=== PATIENT | male | born 1950 | race Caucasian/White ===

== ENCOUNTER 2016-05-19 19:49 | Inpatient (IN) | payer OTHER ==
[~2016-05-19] VITALS: Ht 182.9 cm; Wt 104.3 kg
[~2016-05-19 19:49] MED LIST: AMLO10TA5 PO; ASPI-628 PO; BENA20TA72 PO; CLON1PAT15 TD; CLOP75TA3 PO; FURO-128 PO; Hydrocodone/Acetaminophen PO; INSU100I25 SQ; METO-274 PO
[2016-05-19 20:05] VITALS: BP 184/82; PULSE 82; RESP 21
--- NOTE | 2016-05-19 20:17 | ED.REPORT ---
HPI-Chest Pain 40 and Over Date of Service May 19, 2016 ED Provider: Dr. Ottoniel Barillas M.D. A 66 year old male with a medical history including diabetes mellitus, hypertension, hyperlipidemia, and CAD s/p 4 vessel CABG (1996) and multiple subsequent stent placements presents to the ED with chest pain onset 1900 today , while sitting down. The pain is described as "pressure" in the middle of his chest, with radiation outward. The patient denies nausea, shortness of breath, diaphoresis, vomiting, diarrhea, or other symptoms. He took Nitro x2 at onset, with no relief. EMS found the patient with a BP of 190/93 and otherwise normal vital signs. He was given another Nitro x2 en route, with mild relief. The patient had a brief episode of similar pain last night and again at 1700 today. He has had similar symptoms in the past, most recently nine months ago. Three weeks ago the patient had an infection in his toe followed by tendonitis of the Achilles tendon. Nursing Notes Stated Complaint: CHEST PAIN Chief Complaint: Chest Pain Nursing Notes Reviewed: Yes Allergies: Coded Allergies: Dkwrthe-Aaq-Hwt Reductase Inhibitor (Verified Allergy, Unknown, 05/19/16) atorvastatin (Verified Allergy, Unknown, 05/19/16) pravastatin (Verified Allergy, Unknown, 05/19/16) simvastatin (Verified Allergy, Unknown, 05/19/16) Uncoded Allergies: ANTILIPEMIC (Allergy, Unknown, 12/20/08) ANTILIPEMIC AGENTS (Allergy, Unknown, 08/29/03) Scheduled Amlodipine (Norvasc) 10 Mg Tablet 10 MG PO DAILY Aspirin (Aspir 81) 81 Mg Tablet.dr 81 MG PO HS Benazepril (Lotensin) 20 Mg Tablet 20 MG PO DAILY Clonidine HCl (Clonidine 0.2 mg/24 hr Tdrm Patch) 1 Each Patch.tdwk 1 PATCH TD QW Insulin Detemir (Levemir Flextouch) 100 Unit/1 Ml Insuln.pen 35 UNIT SQ BID Metformin (Metformin) 500 Mg Tablet 500 MG PO BID Metoprolol Succinate ER (Metoprolol Succinate ER) 100 Mg Tab.er.24h 100 MG PO BID Scheduled PRN ([Hydrocodone/Acetaminophen]) 1 TAB TABLET 1-2 TAB PO Q4H PRN PRN For Pain General Time Seen by MD: 20:16 Chief Complaint Chest pain Hx Obtained From: Patient Arrived By: Walk-in Sudden in Onset?: Yes Onset Occurred: 1 - 4 hours ago Symptom Duration: Since onset Location: : Epigastric Quality: Painful, Pressure Severity: Current: Moderate Severity: Maximum: Moderate Associated with: Denies: Diaphoresis, Nausea, Shortness of Breath Relieved by: Nitroglycerin at home x 2, Nitroglycerin - EMS x 2 Context Related History: Reports: Acute coronary syndrome, Hypertension Recent Healthcare: No recent doctor visit Similar Sx Previous: Yes Past Medical History Past Medical History Diabetes Mellitus RBBB CAD s/p 4 vessel CABG 1996, s/p multiple subsequent stents including LAURENCE x 2 to mid and distal RCA in 09/26/2010 Hypertension Hyperlipidemia R knee osteoarthritis Past Surgical History 4 vessel CABG 1996, s/p multiple subsequent stents including LAURENCE x 2 to mid and distal RCA in 09/26/2010 R knee meniscectomy in 1967 Smoking History Never Smoker Social History Alcohol Use: Denies alcohol use Drug Use: Denies drug use Review of Systems Constitutional: Denies: Fever Respiratory: Denies: Non-productive cough, Shortness of breath Cardiovascular: Reports: Chest pain GI: Denies: Diarrhea, Nausea, Vomiting Skin: Denies Diaphoresis Complete sys rev & neg: except as marked. Physical Exam Initial Vital Signs Vital Signs (First) Date Time Temp Pulse Resp B/P Pulse Ox O2 Delivery O2 Flow Rate FiO2 05/19/16 20:05 36.6 82 21 184/82 Room Air 05/19/16 20:31 98 3 Initial VS: Reviewed Head / Eyes: Atraumatic, Normocephalic ENT: Conjunctiva normal, No scleral icterus Neck: Supple, Full range of motion Skin: Warm, Dry, No cyanosis Neurologic: Alert, Oriented, Nonfocal Psychiatric: Mood/affect normal, Behavior normal, Normal thought content General/Constitutional: Awake, Alert Respiratory / Chest: Atraumatic, Breath sounds NL, Breath sounds = bilat, No respiratory distress Cardiovascular: Heart rate NL, Regular rhythm, Heart sounds NL Right leg edema Abdomen: Soft, Non-tender Interpretation & Diagnostics Lab Results Interpretation Result Diagram: 05/19/16201505/19/16 2016 Test 05/19/16 20:16 White Blood Count 14.9th/mm3 (3.8-10.1) Red Blood Count 4.37mil/mm3 (4.40-5.80) Hemoglobin 14.2g/dL (13.8-17.2) Hematocrit 40.4% (41.0-50.0) Mean Corpuscular Volume 92.4fL (81-100) Mean Corpuscular Hemoglobin 32.5pg (27.0-35.0) Mean Corpuscular Hemoglobin Concent 35.1% (32.0-37.0) Red Cell Distribution Width 12.7% (12.3-15.4) Platelet Count 212bil/L (150-400) Neutrophils (%) (Auto) 89.1% (40-74) Lymphocytes (%) (Auto) 8.9% (14-46) Monocytes (%) (Auto) 1.9% (4-12) Eosinophils (%) (Auto) 0% (0-5) Basophils (%) (Auto) 0% (0-3) Sodium Level 133mEq/L (134-144) Potassium Level 4.7mEq/L (3.5-5.2) Chloride Level 93mEq/L (97-108) Carbon Dioxide Level 19mmol/L (18-29) Blood Urea Nitrogen 34mg/dL (8-27) Creatinine 1.34mg/dL (0.76-1.27) Estimat Glomerular Filtration Rate 57mL/min (>59) Glucose Level 414mg/dL (60-99) Calcium Level 10.1mg/dL (8.5-10.1) Magnesium Level 1.8mg/dL (1.6-2.6) Total Bilirubin 0.6mg/dL (0.0-1.2) Aspartate Amino Transf (AST/SGOT) 28U/L (0-50) Alanine Aminotransferase (ALT/SGPT) 16U/L (0-44) Alkaline Phosphatase 75U/L (25-160) Total Creatine Kinase 305U/L (21-232) Creatine Kinase MB 5.5ng/mL (0.0-10.4) Creatine Kinase MB % % (0.0-5.0) Troponin T < 0.010ug/L (0.0-0.011) Total Protein 8.2g/dL (6.4-8.4) Albumin 4.3g/dL (3.4-5.0) Thyroid Stimulating Hormone (TSH) 1.020uIU/mL (0.450-4.500) ECG Interpretation ECG Interpretation: Sinus rhythm rate 81 Borderline prolonged DC interval Right bundle branch block Nonspecific ST wave changes Time: 20:05 Interpreted by: ED physician X-Ray Chest Interpretation Chest Xray Interpretation: IMPRESSION: No acute process. Dictated by: Nellie Hood M.D. on 05/19/2016 at 20:25 View: Portable, 1 view Interpretation / Wet Read by: Interpret - Radiologist Re-Eval/Medical Decision Source of Hx: Old records Time of Eval: 20:55 Patient Status: Condition improved Re-Evaluation/Progress Note: Patient's pain has reduced to less than 1/10. Discussed with patient x-ray and lab results, diagnosis, and plan admit. Patient agrees with plan for care and all questions were addressed. Consultation #1: Referral / Consult Name: Carlton Yoder MD Consulted With: Hospitalist Call Returned at: 21:10 Capsule Inspector: Agrees with eval, Agrees with plan, Accepts admit Consultation #2: Referral / Consult Name: Kisha Ramos MD Consulted With: Balance Truing Inspector: Will see patient, Agrees with plan Counseled Regarding: Diagnosis, Lab results, Need for admission Discharge & Departure Primary Impression: Unstable angina Disposition: ADMITTED TO HOSPITAL Discharge Condition All VS Reviewed: Yes Condition: Improved Referrals: Rosalind Yeager MD (PCP) Scribe Attestation Portions of this note were transcribed by Cass Pak. I, Dr. Barillas, personally performed the history, physical exam, and medical decision-making; I reviewed and confirmed the accuracy of the information in the transcribed note. Signed by: Pernell Thomas, 05/19/2016, 22:40 copies to: Rosalind Yeager MD, Kirk H MD May 19, 2016 20:17 CASS PAK May 19, 2016 20:26
[2016-05-19 20:20] LABS: BASOPHILS % (AUTO) 0 % (0-3); EOSINOPHILS % (AUTO) 0 % (0-5); MONOCYTES % (AUTO) 1.9 % (4-12); Mean Corpuscular Hemoglobin 32.5 pg (27.0-35.0); Mean Corpuscular Volume 92.4 fL (81-100); NEUTROPHILS % (AUTO) 89.1 % (40-74); Platelet Count 212 bil/L (150-400)
[2016-05-19] MEDS ORDERED: Heparin 5,000 Unit/mL Inj IVPUSH ONE (20:25)
--- NOTE | 2016-05-19 20:27 | DRSVH ---
PROCEDURE: X-RAY CHEST ONE VIEW, PORTABLE ([id number]) INDICATIONS: CHEST PAIN TECHNIQUE: One view of the chest was acquired. COMPARISON: [facility], , CHEST 1VW (PORTABLE), 02/08/2014, 22:45. FINDINGS: Surgical changes and devices: Median sternotomy.. Lungs and pleura: No pleural effusions or pneumothorax. Lungs are clear. Mediastinum: Mediastinal contours appear normal. Heart size is normal. Bones and chest wall: No suspicious bony lesions. Overlying soft tissues appear unremarkable. IMPRESSION: No acute process. Dictated by: Nellie Hood M.D. on 05/19/2016 at 20:25 Approved by: Nellie Hood M.D. on 05/19/2016 at 20:26
[2016-05-19] MEDS: MeTOProlol 1 mg/mL 5 mL Inj IVPUSH PRN (20:30)
[2016-05-19 20:31] VITALS: BP 161/76; PULSE 80; RESP 19; O2SAT 98
[2016-05-19] MEDS: Heparin 25K Unit/500mL 0.45 NS 25,000 UNIT in IV Premix 1 EACH IV SCH (20:34)
[2016-05-19 20:50] LABS: TROPONIN T < 0.010 ug/L (0.0-0.011)
[2016-05-19] MEDS ORDERED: Nitroglycerin 2% 1 Gm Ointment TOPICAL SCH (20:55)
[2016-05-19 20:56] LABS: Magnesium 1.8 mg/dL (1.6-2.6)
[2016-05-19 21:00] VITALS: BP 156/67; PULSE 73; RESP 19; O2SAT 97
[2016-05-19] MEDS ORDERED: Alum-Mag Hydrox-Simeth 30 mL Suspension PO PRN (21:10)
[2016-05-19] MEDS ORDERED: Ondansetron 2 mg/mL 2 mL Inj IVPUSH PRN (21:10)
[2016-05-19] MEDS ORDERED: Senna-Docusate 8.6-50 mg Tablet PO PRN (21:10)
[2016-05-19] MEDS ORDERED: Polyethylene Glycol (PEG) 17 Gm Powder PO PRN (21:10)
[2016-05-19] MEDS ORDERED: Atropine 1 mg/10 mL (Code) Syringe IVPUSH PRN (21:10)
[2016-05-19 21:19] VITALS: BP 142/64; PULSE 74; RESP 19; O2SAT 98
[2016-05-19] MEDS ORDERED: Glucose 40% Oral Gel 15 Gm Tube PO PRN (21:50)
[2016-05-19 21:59] LABS: Creatine Kinase 305 U/L (21-232)
[2016-05-19 22:23] VITALS: BP 160/75; PULSE 67; RESP 22; O2SAT 96
[2016-05-19] MEDS: 0.9% Sodium Chloride 1,000 ML IV SCH (22:50)
[2016-05-19] MEDS ORDERED: METF500T4 PO (22:50)
[2016-05-19] MEDS: Insulin LISPRO 300 Unit/3 mL Inj SUBQ SCH (22:56)
--- NOTE | 2016-05-19 23:07 | PCM.HPMED ---
Subjective Date of Service May 19, 2016 Primary Provider: Admitting Physician: Primary Care Physician: Rosalind Yeager MD Attending Physician: Admit Status: From the Emergency Department, Full Admit, [facility] Telemetry Chief Complaint: Chest pain History of Present Illness: Tez Rivera is a 66 year old male with Coronary artery disease, Diabetic with Hypertension and Hyperlipidemia who presents to [facility] emergency department with chest pain. Patient reported the onset was 1900 today, while sitting down. The pain is described as "pressure" in the middle of his chest, without any radiation. The patient denies nausea, shortness of breath, diaphoresis, vomiting, diarrhea. Patient mention this is his typical angina pain but is more persistent today. The patient has had similar symptoms in the past, most recently nine months ago. He is under alot of Stress st home and did not elaborate He took Nitro x2 at onset, with no relief. He then called 911. EMS found the patient with persistent pain. He was given another Nitro x2 en route, with mild relief. . Three weeks ago the patient had an infection in his toe followed by tendonitis of the Achilles tendon. He is currently stating a 5 day course of Prednisone. Case discussed with Dr Barillas, Review of Systems: Pertinent positives as noted in HPI. All other systems were reviewed and are negative Allergies Coded Allergies: Dvpcjgn-Aio-Dll Reductase Inhibitor (Verified Allergy, Unknown, 05/19/16) atorvastatin (Verified Allergy, Unknown, 05/19/16) pravastatin (Verified Allergy, Unknown, 05/19/16) simvastatin (Verified Allergy, Unknown, 05/19/16) Uncoded Allergies: ANTILIPEMIC (Allergy, Unknown, 12/20/08) ANTILIPEMIC AGENTS (Allergy, Unknown, 08/29/03) Home Medications From [facility], not yet confirmed Tez Rivera. [id number] 1950 05/18/2016 10:40 AM 02/28 Aldactazide 25 mg-25 mg tablet take 1 tablet by oral route every day AmLODIPine Besylate Oral Tablet 10 MG TAKE ONE TABLET BY MOUTH ONE TIME DAILY aspirin 81 mg tablet,delayed release take 1 tablet by oral route every day Benazepril HCl Oral Tablet 20 MG TAKE ONE TABLET BY MOUTH ONE TIME DAILY clonidine 0.3 mg/24 hr weekly transdermal patch apply 1 patch by transdermal route every week Co Q-10 100 mg capsule take 1 by Oral route once Fish Oil 1,000 mg capsule take 1 tablet every day Imdur 60 mg tablet,extended release take 1 1/2 tablet by oral route every day in the morning Lantus SoloStar Subcutaneous Solution Pen-injector 100 UNIT/ML INJECT 30 UNITS SUB-Q TWICE DAILY MetFORMIN HCl Oral Tablet 500 MG TAKE 1 TABLET BY MOUTH TWICE A DAY Metoprolol Succinate ER Oral Tablet Extended Release 24 Hour 200 MG TAKE ONE TABLET BY MOUTH TWICE DAILY nitroglycerin 0.4 mg sublingual tablet 1 tablet S/L prn Rpt q 5 min , if pain persists after 2 tabs seek medical attention pravastatin 20 mg tablet take 1 tablet by oral route every day prednisone 50 mg tablet take 1 tablet by oral route every day PMH Hypertension Hyperlipidemia Diabetes Type 2 Vertigo Coronary artery disease status post CABG (X4 in '97), coronary stent, hypertension, diabetes and hyperlipidemia. 3 saphenous vein grafts are occluded , the MONTENEGRO to his LAD remained patent. He previously reported angina with minimal activity, post meals, cold temperatures and exertion. He was last seen 12/08/[address] Leon. R knee osteoarthritis . Surgical History R knee meniscectomy in 1968 Cardiac Bypass surgery Family History Father had CABG Mother had a defibrillator placed Social History Hx Alcohol Use: No Hx Substance Use: No Hx Tobacco Use: No Smoking Status: Never Smoker Living Arrangement: with Family Exam Vital Signs Vital Sign - Last Date Time Temp Pulse Resp B/P Pulse Ox O2 Delivery O2 Flow Rate FiO2 05/19/16 21:19 74 19 142/64 98 Nasal Cannula 3 05/19/16 20:05 36.6 Exam General: Alert, Oriented X3, Cooperative, No acute Distress Eyes: PERRLA, Scleral Anicteric Mouth: Mouth Normal, Mucous Membranes Moist/Howell Neck: Supple, no Thyromegaly, trachea central. Chest & Lungs: Clear to auscultation & percussion, No adventitious breath sounds, no crackles, no wheeze Cardiovascular: Normal S1, Normal S2, No Murmurs/Rubs/Gallops, Regular Rate/ Rhythm, (No JVD, no peripheral edema) Pulses: Radial (present and equal), Dorsalis Pedi (present and equal) Abdomen: Soft, Non-tender, Non-distended, Normoactive bowel tones. Musculoskeletal: Unremarkable. Normal range of motion, no swollen or erythematous joints Extremities: Chronic right leg edema, no cyanosis, no clubbing. Skin: No rashes. Warm and dry, no erythematous areas Neurological: Grossly neurologically intact, Normal Speech, Sensation Intact Lymphatic: Lymph nodes Cervical and Axillary not palpable Lab and Diagnostics Labs Laboratory Tests Test 05/19/16 20:16 White Blood Count 14.9th/mm3 (3.8-10.1) Red Blood Count 4.37mil/mm3 (4.40-5.80) Hemoglobin 14.2g/dL (13.8-17.2) Hematocrit 40.4% (41.0-50.0) Mean Corpuscular Volume 92.4fL (81-100) Mean Corpuscular Hemoglobin 32.5pg (27.0-35.0) Mean Corpuscular Hemoglobin Concent 35.1% (32.0-37.0) Red Cell Distribution Width 12.7% (12.3-15.4) Platelet Count 212bil/L (150-400) Neutrophils (%) (Auto) 89.1% (40-74) Lymphocytes (%) (Auto) 8.9% (14-46) Monocytes (%) (Auto) 1.9% (4-12) Eosinophils (%) (Auto) 0% (0-5) Basophils (%) (Auto) 0% (0-3) Sodium Level 133mEq/L (134-144) Potassium Level 4.7mEq/L (3.5-5.2) Chloride Level 93mEq/L (97-108) Carbon Dioxide Level 19mmol/L (18-29) Blood Urea Nitrogen 34mg/dL (8-27) Creatinine 1.34mg/dL (0.76-1.27) Estimat Glomerular Filtration Rate 57mL/min (>59) Glucose Level 414mg/dL (60-99) Calcium Level 10.1mg/dL (8.5-10.1) Magnesium Level 1.8mg/dL (1.6-2.6) Total Bilirubin 0.6mg/dL (0.0-1.2) Aspartate Amino Transf (AST/SGOT) 28U/L (0-50) Alanine Aminotransferase (ALT/SGPT) 16U/L (0-44) Alkaline Phosphatase 75U/L (25-160) Troponin T < 0.010ug/L (0.0-0.011) Total Protein 8.2g/dL (6.4-8.4) Albumin 4.3g/dL (3.4-5.0) Result Diagram: 05/19/16201505/19/162015 X-Rays, CTs and MRIs X-RAY CHEST ONE VIEW, PORTABLE 05/19 IMPRESSION: No acute process. Dictated by: Nellie Hood M.D. on 05/19/2016 at 20:25 Approved by: Nellie Hood M.D. on 05/19/2016 at 20:26 Assessment & Plan Tez Rivera is a 66 year old male with Coronary artery disease, Diabetic with Hypertension and Hyperlipidemia who presents to [facility] emergency department with chest pain. 1. Acute Unstable Angina. Present on admission Extensive history of coronary artery disease with CABG with other risk factoring not limited to Diabetes, Hypertension and Hyperlipidemia. Presumed to have stable cardiac disease from Dec 2015 Cardiology clinic visit. - continuing Heparin drip - loading Plavix 300 mg then 75 mg daily in addition to Aspirin - trending cardiac biomarkers - Cardiology has been consulted to decide on Cardiac cath 2. Acute Kidney Injury. Present on admission No documented Kidney disease with normal renal function as of December 2015. Suspect pre renal azotemia as underlying cause. - avoid nephrotoxic insults, may pose an issue with cardiac cath is pursued - will continue hydration with normal saline - monitor urine output - holding KRYSTAL inhibitor for now - may consider Nephrology consult if no improvement with hydration 3. Acute Leukocytosis. Present on admission Likely due to Steroids without any evidence of infections. Taking due to Achilles tendonitis but resolving - continue Prednisone till complete - Urinalysis requested 4. Uncontrolled Diabetes type 2 - holding Metformin - checking A1c to monitor compliance - patient on a regimen of Lantus 30 units bid - high correction Lispro algorithm 5. Hyperlipidemia Multiple side effects from other statins but currently tolerating Pravastatin. Total cholesterol > 200 from February - continuing Pravastatin - Acetaminophen as needed for mild pain/fever/headache - Bowel regimen as needed - Antiemetic as needed Patient admitted under inpatient status with expected length of stay > 2 midnights for severity of present symptoms, complexities of treatment plan and risk for adverse event . Tez Rivera. [id number] 1950 05/18/2016 10:40 AM 02/28 Aldactazide 25 mg-25 mg tablet take 1 tablet by oral route every day AmLODIPine Besylate Oral Tablet 10 MG TAKE ONE TABLET BY MOUTH ONE TIME DAILY aspirin 81 mg tablet,delayed release take 1 tablet by oral route every day Benazepril HCl Oral Tablet 20 MG TAKE ONE TABLET BY MOUTH ONE TIME DAILY clonidine 0.3 mg/24 hr weekly transdermal patch apply 1 patch by transdermal route every week Imdur 60 mg tablet,extended release take 1 1/2 tablet by oral route every day in the morning Metoprolol Succinate ER Oral Tablet Extended Release 24 Hour 200 MG TAKE ONE TABLET BY MOUTH TWICE DAILY nitroglycerin 0.4 mg sublingual tablet 1 tablet S/L prn Rpt q 5 min , if pain persists after 2 tabs seek medical attention prednisone 50 mg tablet take 1 tablet by oral route every day Resuscitation Status: CPR: Attempt Resuscitation Carlton Yoder MD May 19, 2016 21:30
[2016-05-19] MEDS ORDERED: Insulin GLARgine 100 Unit/mL Syringe SUBQ ONE (23:15)
[2016-05-19 23:19] VITALS: PULSE 71
[2016-05-20] VITALS (8 sets, daily range): BP systolic 133–166; BP diastolic 67–90; PULSE 60–68; RESP 20; O2SAT 95–97
[2016-05-20] MEDS: Sodium Chloride LOK Flush 10 mL Syringe IVFLUSH SCH ×4 (00:30→22:07)
--- NOTE | 2016-05-20 00:51 | NUR ---
Admission Pt arrived to room 3026 alert and oriented x 3, ambulatory with a steady gait, and conversing in full sentences. Pt was oriented to room, call light, bed and policies. Pt denied chest discomfort on arrival and has had no complaints since.
[2016-05-20 03:39] LABS: BASOPHILS % (AUTO) 0.1 % (0-3); EOSINOPHILS % (AUTO) 0 % (0-5); MONOCYTES % (AUTO) 4.7 % (4-12); Mean Corpuscular Hemoglobin 32.1 pg (27.0-35.0); Mean Corpuscular Volume 93.3 fL (81-100); NEUTROPHILS % (AUTO) 83.1 % (40-74); Platelet Count 194 bil/L (150-400)
[2016-05-20] MEDS: Heparin 5,000 Unit/mL Inj IVPUSH PRN ×3 (04:18→22:03)
[2016-05-20 04:20] LABS: Creatine Kinase 274 U/L (21-232); TROPONIN T 0.015 ug/L (0.0-0.011)
[2016-05-20] MEDS ORDERED: BENAZEPRIL 20 MG PO SCH (08:30)
[2016-05-20] MEDS: MeTOProlol XL 50 mg ER24 Tablet PO SCH ×2 (08:47→20:30)
[2016-05-20] MEDS: Insulin LISPRO 300 Unit/3 mL Inj SUBQ SCH ×4 (08:48→22:06)
[2016-05-20] MEDS: Insulin GLARgine 100 Unit/mL Syringe SUBQ SCH ×2 (08:51→22:07)
[2016-05-20] MEDS: 0.9% Sodium Chloride 1,000 ML IV SCH (08:52)
--- NOTE | 2016-05-20 10:04 | PCM.CHPCAR ---
Consult Subjective Date of service May 20, 2016 Date of admit May 19, 2016 at 21:43 Provider Requesting Consult Primary Care Physician Primary Care Physician: Rosalind Yeager MD Chief Complaint Chest pain History of Present Illness Mr. Rivera is a 66-year-old male with significant history of CAD with CABG ( 1996 x4 at [place]), known saphenous vein graft occlusion, stent to mid and distal RCA and diagonal branch in 2000, hypertension, diabetes, hyperlipidemia. His most recent heart catheterization 02/11/2014 revealed normal left main, LAD chronically clued distal takeoff of the first diagonal branch. Previous stent remained patent. Circumflex artery was small. First obtuse marginal branch was occluded. Second obtuse marginal branch was small and had a tight 90 % stenosis. The dominant RCA had 60% stenosis in the proximal portion, eccentric 95% stenosis in the midportion and an 80% stenosis in the distal portion. The right posterior descending branch had minor irregularity. The right posterolateral branch had eccentric 95% stenosis. The left internal mammary artery graft to the LAD was in good shape with excellent distal anastomosis and distal runoff. PTCA to the proximal, mid and distal right RCA was performed. There was residual 40% stenosis in the proximal portion, 60% stenosis in the midportion, and 50-60% stenosis in the distal portion. PTCA to the small obtuse marginal branch was performed leaving residual 80% stenosis. LVEF of 70% with LVEDP 5 mmHg. Echocardiogram from 2014 showed normal systolic function with distal and anterior/ apical hypokinesis. No significant valvular disease. In February 2014 he had repeat CABG 1 with heart rate to PDA. The patient was last seen in our office in December 2015 at which point he was reporting continued but stable chest pain post prandially and with emotional stress and low-level activity. He claims overall he has been relatively stable symptom-[place] since then however on the evening of April 2015 experience some chest pressure while at his son's home that went away after a few minutes of rest. He went home and was sitting on his couch when he developed progressively worsening pain over several minutes that peaked at 4 out of 10. It was his typical pain/pressure substernally without radiation. He took 2 nitroglycerin tablets without improvement and called 911. He claims he is having a lot of stress as he was just told his son is getting a divorce. He claims since his admission he has had mild symptoms of chest pressure. He claims he has been compliant with his medications. He claims he has developed a tendinitis in his right foot for which he just started taking prednisone a day or 2 prior. He claims these symptoms have improved. He states otherwise he has been in good health without other concerns. He denies palpitations, orthopnea, PND. He admits to mild ongoing peripheral edema if he standing for too long (since his bypass surgery) but denies unusual shortness of breath or worsening exercise intolerance. He feels like he is under stress with the news of the divorce and this is aggravating his anginal symptoms. He occasionally gets tingling into his extremities but attributes this to working more on projects around the house. He symptoms improved with rest. He otherwise denies abdominal pain, problems with bowel movements, melena hematochezia, urinary dysfunction, unusual bruising, rash or lesions. Review of Systems Review of Systems 14 point review of systems is otherwise benign other than mentioned above. PMH Past Medical History #CAD with CABG times 06/12/1996, occluded saphenous vein graft with patent MONTENEGRO to LAD. Multiple stents. #Diabetes mellitus #Statin intolerance (Zocor Lipitor myalgias and flulike symptoms) tolerates low -dose pravastatin. #Hypertension Past Surgical History CABG times 06/12/1996 with known restenosis of saphenous vein graft., Repeat CABG 1 moderate PDA February 2014. Right knee medial meniscus surgery as teenager, Tonsillectomy Other History Home medications: Aldactazide 25/25 one daily Amlodipine 10 mg daily Benazepril 20 mg daily Aspirin 81 mg daily Clonidine 0.3 mg per 24 hour transdermal patch Fish oil 1 g daily Imdur 60 mg 1.5 every morning Lantus Metformin Metoprolol 200 mg daily Pravastatin 20 mg daily. Bedside Blood Glucose: 192 Scheduled Amlodipine (Norvasc) 10 Mg Tablet 10 MG PO DAILY (Reported) Aspirin (Aspir 81) 81 Mg Tablet.dr 81 MG PO HS (Reported) Benazepril (Lotensin) 20 Mg Tablet 20 MG PO DAILY (Reported) Clonidine HCl (Clonidine 0.2 mg/24 hr Tdrm Patch) 1 Each Patch.tdwk 1 PATCH TD QW (Reported) Insulin Detemir (Levemir Flextouch) 100 Unit/1 Ml Insuln.pen 35 UNIT SQ BID ( Reported) Metformin (Metformin) 500 Mg Tablet 500 MG PO BID (Reported) Metoprolol Succinate ER (Metoprolol Succinate ER) 100 Mg Tab.er.24h 100 MG PO BID (Reported) Scheduled PRN ([Hydrocodone/Acetaminophen]) 1 TAB TABLET 1-2 TAB PO Q4H PRN PRN For Pain Discontinued Medications Clopidogrel Bisulfate (Plavix) 75 Mg Tablet 75 MG PO DAILY Furosemide (Lasix) 40 Mg Tablet 40 MG PO DAILY (Reported) Current Inpatient Medications Current Medications Nitroglycerin 0.4 mg Q5MIN PRN SL Last administered on 05/19/16 20:30; Admin Dose 0.4 MG; Start 05/19/16 at 20:20; Stop 05/20/16 at 06:00; Status DC Metoprolol Tartrate 5 mg Q5MIN PRN IVPUSH Last administered on 05/19/16 20:30 ; Admin Dose 5 MG; Start 05/19/16 at 20:20 Morphine Sulfate UP TO 10 mg IV in a 4 h... Q15MIN PRN IVPUSH Last administered on 05/19/16 20:30; Admin Dose 4 MG; Start 05/19/16 at 20:20; Stop 05/20/16 at 06:00; Status DC Heparin Sodium (Porcine) Per Protocol for a... PRN PRN IVPUSH Last administered on 05/20/16 04:18; Admin Dose 3,000 UNIT; Start 05/19/16 at 20:25 Nitroglycerin 1 inch NOW TOPICAL Last administered on 05/19/16 21:00; Admin Dose 1 INCH; Start 05/19/16 at 20:55; Stop 05/19/16 at 21:52; Status DC Sodium Chloride 10 ml 10 ml CHAPO IVFLUSH; Start 05/20/16 at 00:30 Sodium Chloride 1,000 ml @ 100 mls/hr Q10H IV Last administered on 05/20/16 08 :52; Admin Dose 100 MLS/HR; Start 05/19/16 at 21:10 Aspirin 81 mg DAILY PO Last administered on 05/20/16 08:47; Admin Dose 81 MG; Start 05/20/16 at 08:30 Al Hydrox/Mg Hydrox/Simethicone 30 ml Q6H PRN PO; Start 05/19/16 at 21:10 Ondansetron HCl 4-8 mg prn nausea Q4H PRN IVPUSH; Start 05/19/16 at 21:10 Senna 1 tablet BID PRN PO; Start 05/19/16 at 21:10 Polyethylene Glycol 17 gm DAILY PRN PO; Start 05/19/16 at 21:10 Acetaminophen 325 mg Q6H PRN PO; Start 05/19/16 at 21:10 Nitroglycerin 0.4 mg Q5MIN PRN SL; Start 05/19/16 at 21:10 Morphine Sulfate 1-5 mg prn pain not relie... Q5M PRN IVPUSH; Start 05/19/16 at 21:10 Atropine Sulfate 0.5 mg Q5MIN PRN IVPUSH; Start 05/19/16 at 21:10 Clopidogrel Bisulfate 75 mg DAILY PO Last administered on 05/20/16 08:47; Admin Dose 75 MG; Start 05/20/16 at 08:30 Insulin Human Lispro Nutritional Dose to be given pr... [facility] SUBQ Last administered on 05/20/16 08:48; Admin Dose 2 UNIT; Start 05/19/16 at 22:00 Clonidine HCl 1 patch Q7D TOPICAL; Start 05/25/16 at 08:30 Amlodipine Besylate 10 mg DAILY PO Last administered on 05/20/16 08:46; Admin Dose 10 MG; Start 05/20/16 at 08:30 Non-Formulary Medication 20 mg DAILY PO; Start 05/20/16 at 08:30; Stop 05/20/16 at 08:30; Status DC Insulin Glargine 35 unit BID SUBQ Last administered on 05/20/16 08:51; Admin Dose 35 UNIT; Start 05/20/16 at 08:30 Metoprolol Succinate 100 mg BID PO Last administered on 05/20/16 08:47; Admin Dose 100 MG; Start 05/20/16 at 08:30 Allergies: Coded Allergies: Zdxjfrw-Cuk-Puj Reductase Inhibitor (Verified Allergy, Unknown, 05/19/16) atorvastatin (Verified Allergy, Unknown, 05/19/16) pravastatin (Verified Allergy, Unknown, 05/19/16) simvastatin (Verified Allergy, Unknown, 05/19/16) Uncoded Allergies: ANTILIPEMIC (Allergy, Unknown, 12/20/08) ANTILIPEMIC AGENTS (Allergy, Unknown, 08/29/03) Family History Family History Father- with CAD beginning in his 40s with CABG, diabetes, hypertension. Mother- permanent pacemaker, leukemia. Social History Occupation: owns a homeHx Alcohol Use: NoHx Substance Use: NoHx Tobacco Use: No Smoking Status: Never Smoker Living Arrangement: with Family Exam Vital Signs Vital Sign - Last Date Time Temp Pulse Resp B/P Pulse Ox O2 Delivery O2 Flow Rate FiO2 05/20/16 04:30 36.7 62 20 144/75 96 Room Air 05/19/16 21:19 3 Intake and Output 05/19/16 05/19/16 05/20/16 Cumulative From/Thru 14:59 22:59 06:59 05/19/16 20:05 - 05/20/16 05:25 Intake Total 300 ml 300 ml Output Total 900 ml 900 ml Balance -600 ml -600 ml Intake Oral 300 ml 300 ml Output Urine Total 900 ml 900 ml Objective #Gen. patient sitting up in bed in no apparent distress. #HEENT eyes clear PERRLA pharynx moist, tongue midline. Face symmetrical. #Neck supple without adenopathy, thyroid benign. #Chest symmetrical without retractions, breathing easily. Lungs are clear to auscultation bilaterally. #Cardiovascular heart is regular rate and rhythm without murmur click rub or gallop. Trace edema lower extremities without pitting. 0 to trace DC MPT pulses bilaterally. No carotid, abdominal or inguinal bruits appreciated. #Abdomen- obese, soft nontender without apparent organomegaly. #Neurologic patient alert and oriented 4, no distress. No obvious focal deficits. #Musculoskeletal has movement of extremities 4 no obvious deficits. #Integument benign without significant signs of rash or lesion. #Psychiatric patient no apparent distress until he begins talking about his son' s divorce which brings him to tears. Lab and Diagnostics Labs Troponin initially negative second 0.015. CK-MB 5.5 and 4.6. Total CK 305/274. Total cholesterol 194, triglycerides 244, LDL 109, HDL 36. TSH 1.020. Result Diagram: 05/20/16 0905 05/20/16 0615 X-Rays, CTs and MRIs Test x-ray without acute disease per radiology review. 12-lead ECG EKG with right bundle branch block, nonspecific ST depression in multiple leads. First degree AV block. QTC 529. Telemetry with occasional PVC and ventricular couplets over night. No runs or significant bradycardia. Assessment & Plan Assessment Mr Rivera is a 66-year-old male with history of hypertension, hyperlipidemia, diabetes and a significant history of CAD status post CABG 2 most recent procedure was February 2014 with radial artery to PDA. Prior to that, four-way bypass at [facility] in 1996. He has known saphenous vein occlusion with MONTENEGRO graft to LAD. He has had multiple procedures and interventions in the interim. He is known to the cardiology service to have ongoing angina postprandially and with stress and activity. He has been relatively stable until recently when he had angina that did not respond to 2 nitroglycerin tablets while resting at home. He admits to being under significant stress secondary to learning his son will be getting a divorce and we suspect this extra stress is contributing significantly to his angina. #CAD- Discussed with Dr Esparza and we will recommend Exercise Stress test with MIBI / back up Lexiscan. Pt needs to hold isosorbide for 24 hrs prior but can take their metoprolol as usual with no need to hold for our test. Pt thinks he has been taking 60mgs of isosorbide daily ( not 90mgs) If stress testing does not show significant area of ishcemia then patient may be discharged home with increased dose of isosorbide ( please verify dose and increase by 30mgs) then close fu with cardiology as out patient. #Hyperlipidemia patient has history of statin intolerance however he has been taking pravastatin 20 mg daily at home without problems. Patient should remain on this medication while in the hospital. #Diabetes- manage per hospitalist #Hypertension - continue current meds and monitor. Resuscitation Status: CPR: Attempt Resuscitation Paulino Tiwari PA-C May 20, 2016 10:04
--- NOTE | 2016-05-20 12:53 | PCM.PNMED ---
Subjective Date of Service May 20, 2016 Subjective Tez Rivera is a 66 year old male with Coronary artery disease, Diabetic with Hypertension and Hyperlipidemia who presents to [facility] emergency department with chest pain. Overnight no acute events reported This morning patient is feeling well. He is had no residual chest pressure or pain, he denies shortness of breath, nausea, vomiting, diaphoresis, neck or shoulder pain. Exam Vital Signs Vital Sign - Last Date Time Temp Pulse Resp B/P Pulse Ox O2 Delivery O2 Flow Rate FiO2 05/20/16 04:30 36.7 62 20 144/75 96 Room Air 05/19/16 21:19 3 Intake and Output 05/19/16 05/19/16 05/20/16 Cumulative From/Thru 15:00 23:00 07:00 05/19/16 20:05 - 05/20/16 05:25 Intake Total 300 ml 300 ml Output Total 900 ml 900 ml Balance -600 ml -600 ml Intake Oral 300 ml 300 ml Output Urine Total 900 ml 900 ml Exam General: No acute distress, well-developed, well-nourished, appropriately interactive HEENT: Normocephalic, atraumatic. External ears without defect. Pupils equal, round, and reactive to light and accommodation. Anicteric sclerae, moist conjunctivae, and no lid lag. Oropharynx free of erythema and cobble stoning with moist mucosa. Neck: Supple with full range of motion. No jugular venous distension. No lymphadenopathy or thyromegaly. Cardiovascular: Regular rate and rhythm with no murmurs, rubs, or gallops appreciated Pulmonary: Clear to auscultation bilaterally with no crackles, wheezes, or rhonchi. Normal respiratory effort with no use of accessory muscles. Abdomen: Bowel tones present. Soft, nontender, nondistended. No hepatosplenomegaly or masses appreciated. Extremities: No clubbing, cyanosis, edema, or lymphadenopathy appreciated. Skin: Normal temperature, turgor, and texture; no rash, ulcers, or subcutaneous nodules appreciated. Neurological: Cranial nerves grossly intact. Normal muscle strength, tone, and bulk. No known gait impairment. Psychiatric: Normal mood and affect. Alert and oriented to person, place, and time. Lab and Diagnostics Result Diagram: 05/20/16 0226 05/20/16 0615 X-Rays, CTs and MRIs X-RAY CHEST ONE VIEW, PORTABLE 05/19 IMPRESSION: No acute process. Dictated by: Nellie Hood M.D. on 05/19/2016 at 20:25 Approved by: Nellie Hood M.D. on 05/19/2016 at 20:26 Assessment & Plan Tez Rivera is a 66 year old male with Coronary artery disease, Diabetic with Hypertension and Hyperlipidemia who presents to [facility] emergency department with chest pain. 1. Acute Unstable Angina. Present on admission Extensive history of coronary artery disease with CABG with other risk factoring not limited to Diabetes, Hypertension and Hyperlipidemia. Presumed to have stable cardiac disease from Dec 2015 Cardiology clinic visit. - continuing Heparin drip - loading Plavix 300 mg then 75 mg daily in addition to Aspirin - trending cardiac biomarkers, mild trend upward of troponin to 0.017, CK-MB normal. - Cardiology has been consulted, Moving forward with stress test in the AM, no need to hold Beta tiffany, Imdur has not been administered while in hospital. - Patient will need 90mg daily of isosorbide daily once resumed with close outpatient cardiology follow up. 2. Acute Kidney Injury. Present on admission No documented Kidney disease with normal renal function as of December 2015. Suspect pre renal azotemia as underlying cause. - avoid nephrotoxic insults, may pose an issue with cardiac cath is pursued - will continue hydration with normal saline - monitor urine output - holding KRYSTAL inhibitor for now - may consider Nephrology consult if no improvement with hydration 3. Acute Leukocytosis. Present on admission Likely due to Steroids without any evidence of infections. Taking due to Achilles tendonitis but resolving - continue Prednisone till complete - Urinalysis requested 4. Uncontrolled Diabetes type 2 - holding Metformin - checking A1c to monitor compliance - patient on a regimen of Lantus 30 units bid - high correction Lispro algorithm 5. Hyperlipidemia Multiple side effects from other statins but currently tolerating Pravastatin. Total cholesterol > 200 from February - continuing Pravastatin - Acetaminophen as needed for mild pain/fever/headache - Bowel regimen as needed - Antiemetic as needed Patient admitted under inpatient status with expected length of stay > 2 midnights for severity of present symptoms, complexities of treatment plan and risk for adverse event . Tez Rivera Joel. [id number] 1950 05/18/2016 10:40 AM 02/28 Aldactazide 25 mg-25 mg tablet take 1 tablet by oral route every day AmLODIPine Besylate Oral Tablet 10 MG TAKE ONE TABLET BY MOUTH ONE TIME DAILY aspirin 81 mg tablet,delayed release take 1 tablet by oral route every day Benazepril HCl Oral Tablet 20 MG TAKE ONE TABLET BY MOUTH ONE TIME DAILY clonidine 0.3 mg/24 hr weekly transdermal patch apply 1 patch by transdermal route every week Imdur 60 mg tablet,extended release take 1 1/2 tablet by oral route every day in the morning Metoprolol Succinate ER Oral Tablet Extended Release 24 Hour 200 MG TAKE ONE TABLET BY MOUTH TWICE DAILY nitroglycerin 0.4 mg sublingual tablet 1 tablet S/L prn Rpt q 5 min , if pain persists after 2 tabs seek medical attention prednisone 50 mg tablet take 1 tablet by oral route every day Pain Evaluation: Adequate Pain Control VTE Prophylaxis: Other (heparin drip) Resuscitation Status: CPR: Attempt Resuscitation Attending Statement The patient was seen and examined independently on 05/20/2016and case discussed with Dr. Nayak , I agree with the history, exam and plan as outlined in the note above. Maria Esther Nayak DO May 20, 2016 08:24 Chilango Ge MD May 20, 2016 16:51
--- NOTE | 2016-05-20 15:05 | NUR ---
Social Work- screening: Data:EMR Reviewed. Pt is 66 y/o male who was admitted on 05/19/16 for unstable angina per H&P. Pt's insurance is [employer] and PCP is Porfirio Yeager MD. EMR reviewed. SW attempted to see pt today, but pt having echo at bedside. SW to follow up tomorrow with assessment and Advanced directive. SW will continue to follow. Assessment:pt who is independent at baseline. plan:SW to follow up with pt tomorrow. SW will continue to follow. GIORGIO Infante
--- NOTE | 2016-05-20 16:08 | DRSVH ---
[facility] [address] [place] [address] Echocardiogram Report Name: DANIEL HOODuddennis Asher e: 05/20/2016 Height: 72 in Hospital Exam Location: [facility] Weight: 235 lb Gender: Male BSA: 2.3 m2 : 1950 Age: 66 yrs BP: 144/ 75 mmHg Reason For Study: Chest pain History: CABG Ordering Physician: HOSPITALIST [facility] Performed By: Priti Becker Referring Physician: Fahad Leon Interpretation Summary Left ventricular wall thickness is mildly increased. Left ventricular ejection fraction is estimated to be .55. There is apical inferior wall severe hypokinesis. Compared to the prior exam, the left ventricular wall motion has not changed. There is mild aortic valve sclerosis. The right ventricular systolic pressure is estimated at 33 mmHg assuming a right atrial pressure of 8 mm Hg. Procedure: A two-dimensional transthoracic echocardiogram with color flow and Doppler was performed. The study quality was technically adequate. Comparison is made with the echocardiogram of 02/09/2014. The patient had occasional PVCs during the exam. The heart rate ranged between 55-68 bpm during the study. The patient was in normal sinus rhythm during the exam. Left Ventricle: Left ventricular wall thickness is mildly increased. The left ventricle is normal in size. A false chord is noted (normal variant). Left ventricular ejection fraction is estimated to be .55. Septal motion is consistent with post-operative state. There is apical inferior wall severe hypokinesis. Compared to the prior exam, the left ventricular wall motion has not changed. Assessment of diastolic parameters indicates normal left ventricular diastolic function and normal filling pressures. Right Ventricle: The right ventricle is normal in size and function. Atria: Both atria are normal in size. Chiari network (normal variant) is noted. There is no Doppler evidence for an interatrial shunt. Mitral Valve: There is mild mitral annular calcification. The mitral valve leaflets appear mildly thickened, but open well. There is trace mitral regurgitation. Aortic Valve: The aortic valve is trileaflet. The aortic valve opens well. There is discrete nodular thickening of the non- coronary cusp. There is mild aortic valve sclerosis. There is trace aortic regurgitation. Tricuspid Valve: The tricuspid valve leaflets are thin and pliable. There is a trace or physiologic amount of tricuspid regurgitation. The right ventricular systolic pressure is estimated at 33 mmHg assuming a right atrial pressure of 8 mm Hg. Pulmonic Valve: The pulmonic valve is normal in structure and function. There is a trace or physiologic amount of pulmonic regurgitation. Great Vessels: The aortic root is normal size. The ascending aorta is mildly enlarged. The aortic arch could not be visualized. The pulmonary artery is normal size. The IVC is dilated (diameter is greater than 2.1 cm) yet it collapses greater than 50% with a sniff. This suggests a right atrial pressure of 8 mm Hg. Pericardium/ Pleura There is no pericardial effusion. MMode/2D Measurements & Calculations LVIDd: 4.8 cm LA dimension: 4.0 cm RA long axis LVOT diam LVIDs: 2.5 cm FS: 47.2 % LA A2 area: 18.6 cm RA area AoV Opening EPSS: 0.90 cm LA A4 area: 25.6 cm IVSd: 1.3 cm LA length (vol): 5.8 cm: 13.6 cm Ao root diam LVPWd: 1.3 cm LA vol: 70.2 ml RA vol LA vol index : 32.6 ml Aortic Jxn RA : 14.3 mm2 asc Aorta IVC diam: 2.4 cm Diam: 3.4 cm LV lópez. diameter/BSA LV sys. diameter/BSA RVD1 (basal) TAPSE: 1.6 cm (cm/m^2): 2.1 (cm/m^2): 1.1 Doppler Measurements & Calculations Ao V2 max MV E max ankush MV E/A: 0.98 TR max ankush : 134.2 cm/sec : 90.2 cm/sec Med Peak E' Ankush : 252.1 cm/sec Ao max PG MV A max ankush TR max PG : 7.2 mmHg : 92.0 cm/sec E/E' med: 15.1 : 25.4 mmHg Ao mean PG MV P1/2t: 61.4 msec Lat Peak E' Ankush PA V2 max : 99.6 cm/sec LVOT Max Ankush E/E' lat: 8.2 PA mean PG : 77.2 cm/sec E/e' average: 11.7 Pulm A Revs Dur PA Accel Time MIKAYLA(I,D): 2.3 cm : 0.12 sec sev ratio MV A dur: 0.15 sec MV dec time MV P1/2t max ankush Ao V2 mean LV V1 max PG : 0.20 sec : 92.6 cm/sec MVA(P1/2t): 3.6 cm2 Ao V2 VTI: 31.5 cm LV V1 VTI MIKAYLA(V,D): 2.0 cm2 : 20.1 cm PA V2 mean MIKAYLA indexed to BSA Pulm A Revs Dur - MV : 75.1 cm/sec (cm^2/m^2): 0.99 A Dur: 0.00 msec Electronically signed by: Fahad Leon on Reading Physician:05/20/2016 04:07 PM
[2016-05-20] MEDS: Heparin 25K Unit/500mL 0.45 NS 25,000 UNIT in IV Premix 1 EACH IV SCH (20:53)
[2016-05-21 01:00] VITALS: BP 174/79; RESP 20; O2SAT 97
[2016-05-21 03:25] LABS: BASOPHILS % (AUTO) 0 % (0-3); EOSINOPHILS % (AUTO) 0 % (0-5); Mean Corpuscular Volume 91.8 fL (81-100); NEUTROPHILS % (AUTO) 85.1 % (40-74); Platelet Count 168 bil/L (150-400)
[2016-05-21 04:05] LABS: TROPONIN T 0.01 ug/L (0.0-0.011)
[2016-05-21 04:37] VITALS: BP 156/82; PULSE 60; RESP 20; O2SAT 97
--- NOTE | 2016-05-21 05:52 | NUR ---
Blood sugar, NPO: Blood sugar at HS was 291, full dose of Lantus and correctional dose administered; decreased to only 247 at 0300.. Pt has been NPO since midnight for Lexiscan today. No reports of pain.
[2016-05-21] MEDS: Insulin GLARgine 100 Unit/mL Syringe SUBQ SCH (07:49)
[2016-05-21] MEDS: MeTOProlol XL 50 mg ER24 Tablet PO SCH (07:50)
[2016-05-21] MEDS: Insulin LISPRO 300 Unit/3 mL Inj SUBQ SCH ×2 (07:50→11:55)
[2016-05-21] MEDS: Sodium Chloride LOK Flush 10 mL Syringe IVFLUSH SCH (07:50)
--- NOTE | 2016-05-21 10:52 | NUR ---
OFF FLOOR Pt off floor for STRESS test at 0800, heparin drip was stopped and pt SL.
[2016-05-21 11:06] VITALS: PULSE 62
[2016-05-21 11:49] VITALS: BP 169/81; PULSE 64; RESP 20; O2SAT 98
[2016-05-21] MEDS: MeTOProlol 1 mg/mL 5 mL Inj IVPUSH PRN (12:07)
--- NOTE | 2016-05-21 12:23 | DRSVH ---
PROCEDURE: 1 DAY PHARMACOLOGICAL STRESS TEST Rest and pharmacological stress myocardial perfusion SPECT with gated imaging and ejection fraction RADIOPHARMACEUTICAL: 10.1 mCi Tc-99m tetrafosmin IV at rest and 34 mCi Tc-99m tetrafosmin IV at peak effect of pharmacological stress. A xve-ijb-gjnbbejb was performed. INDICATIONS: CORONARY ARTERY DISEASE; CHEST PAIN. TECHNIQUE: Radiopharmaceutical was injected at peak stress test, and also at rest. SPECT images wer e obtained. SPECT myocardial perfusion images were displayed in short axis, horizontal long axis, an d vertical long axis views. Gated images were reviewed using Wikisway software. COMPARISON: None. CARDIAC STRESS: A pharmacologic stress test was performed under the supervision of an attending staff, using an infus ion of lexiscan . Hemodynamic data: There is normal blood pressure and heart rate response to pharmacologic stress. Symptoms: The patient reported chest pain and dyspnea Aminophylline: 100 mg EKG: ST changes seen in the inferolateral leads - PVCs FINDINGS: Raw data: There is good myocardial uptake of radiotracer. No significant motion artifacts. Left ventricle function: Gated images demonstrate normal left ventricular wall thickening. There is hypokinesis of the septum consistent with a post surgical state. Left ventricle resting end diasto lic volume is 104 mL. Left ventricle stress ejection fraction is 59% ; normal range is above 45%. Myocardial perfusion: There is a small area of moderately decreased uptake affecting the apex that i s fixed on the rest and stress images. There is also a very small area of mildly decreased uptake af fecting the basal inferolateral wall. IMPRESSION: 1. Appropriate hemodynamic response to pharmacologic stress. 2. The patient reported chest pain and dyspnea. ECG changes are present. 3. Scintigraphic area for a small area of possible ischemia affecting the basal inferolateral wall. The apical defect may be related to previous myocardial injury. 4. Normal left ventricular size and systolic function. Dictated by: Sandra Hernandez M.D. on 05/21/2016 at 12:14 Approved by: Sandra Hernandez M.D. on 05/21/2016 at 12:22
[2016-05-21 12:30] VITALS: BP 158/79; PULSE 62
[2016-05-21] MEDS: Heparin 5,000 Unit/mL Inj IVPUSH PRN (12:44)
[2016-05-21] MEDS ORDERED: Isosorbide Mononitrate 30 mg ER24 Tablet PO SCH (13:15)
--- NOTE | 2016-05-21 13:36 | NUR ---
Social Work-screening/readiness for discharge: Data:EMR reviewed. Pt is on day 2 of hospitalization for unstable angina per H&P. Pt's insurance is [employer] and PCP is Porfirio Yeager MD. SW met with pt and at bedside to discuss discharge planning, SW role explained. Pt and reside in [place] where pt remains independent with ADLs. Pt drives and does not use any DME. pt has no HH Or SNF history. Pt has no terminal makeup operator care or VA benefits. SW discussed DPOA/ advanced directive, pt states he has not completed this and is not interested in any paperwork at this time. Pt's to provide transport home. SW provided phone number and plan on white board in room. Pt has been up independent in his room. No anticipated discharge needs. SW will continue to follow if needs arise. Assessment:Pt who is independent at baseline. Plan:Pt to discharge home when medically stable via POV. No anticipated discharge needs. SW will continue to follow if needs arise. GIORGIO Infante
--- NOTE | 2016-05-21 14:33 | PCM.DIMED ---
Maria Esther Nayak DO 05/21/16 1432: Discharge Instructions Date of Service May 21, 2016 Dates of Hospitalization May 19, 2016 at 21:43 Discharge Diagnosis Discharge Diagnosis 1. Acute unstable angina 2. Acute kidney injury 3. Acute leukocytosis 4. Uncontrolled diabetes mellitus type II 5. Hyperlipidemia Medication Instructions Per cardiology we are increasing your dose of Imdur to 90 mg daily. Test Results Your stool occult blood test was positive. Follow-up with your primary care provider Mildly abnormal stress test. Follow-up with Dr. Leon in the clinic. Diet Heart Healthy Activity No restrictions Call your provider Fever or Chills, Shortness of breath, Chest pain, Excessive diarrhea, Weakness ( unilateral) Patient Instructions Your blood sugars have been high here in the hospital. Once home we will need to up titrate your insulin. You may go up to 2 units per day until your blood sugars are in better control. You will need to check an evening and fasting morning blood sugar at a minimum. Close follow up with your primary care provider. Follow-up Provider: Rosalind Yeager MD Follow-up with PCP in: 1 week Provider: Fahad Leon MD Follow-up in: 1 week Chilango Ge MD 05/21/16 1534: Discharge Instructions Attending's Statement The patient was seen and examined independently on 05/21/2016and case discussed with Dr. Nayak , I agree with the discharge instructions as outlined in the note above. Maria Esther Nayak DO May 21, 2016 14:32 Chilango Ge MD May 21, 2016 15:34
--- NOTE | 2016-05-21 14:54 | CONS ---
[address] [address] CONSULTATION REPORT PATIENT: DANIEL HOOD : 1950 MR#: [id number] ADMIT: 05/19/2016 JOB ID: [id number] DATE OF SERVICE: 05/21/2016 REQUESTED BY: Dr. Nayak. REASON FOR EVALUATION: Chest discomfort. I saw and examined the patient. Please see Paulino Tiwari's notes for detail. IMPRESSION: 1. Acute coronary syndrome. 2. Small area of ischemia affecting the basal inferolateral wall. 3. Coronary artery bypass surgery x4 in May 1996 and redo surgery, CABG x1 in February 2014. 4. Diabetes mellitus. 5. Hypertension. 6. Hypercholesterolemia with LDL of 109 on May 20, 2016. 7. Obesity. 8. Possible obstructive sleep apnea. PLAN: I explained to the patient and his that the pharmacologic stress sestamibi showed only small amount of myocardial ischemia. It would be best to manage him conservatively. It is unlikely for percutaneous intervention to be successful for small-vessel disease. I would like to increase the dose of isosorbide mononitrate from 60 mg to 90 mg once daily. He should try harder in order to get his cholesterol under control. He should be considered for adding Zetia to his lipid-lowering regimen. I also advised the patient to see a sleep specialist and obtain a sleep study for further diagnosis and treatment of obstructive sleep apnea. The patient can follow with Dr. Leon, his salt maker, as an outpatient. GILBERTO
[2016-05-21 15:08] VITALS: BP 174/85; PULSE 58; RESP 18; O2SAT 97
[2016-05-21] MEDS ORDERED: ISOS30TA4 PO (15:11)
[2016-05-21] MEDS ORDERED: NITR0.4T SL (15:11)
--- NOTE | 2016-05-21 15:38 | NUR ---
Social Work-discharge: Data:EMR Reviewed. Pt is on day 2 of hospitalization for unstable angina per H&P. Pt is medically stable for discharge. pt has been up independent in his room. No discharge needs identified. All updated and agreeable to plan. Assessment:Pt who is independent at baseline. Plan:Pt to discharge home today via POV. No discharge needs identified. All updated and agreeable to plan. GIORGIO Infante
--- NOTE | 2016-05-21 16:37 | NUR ---
Discharge Pt discharged home with via private vehicle. Pt verbalized understanding of discharge, Rx, and follow up instructions, personal belongings accounted for and left with pt.
--- NOTE | 2016-05-21 19:36 | PCM.DC.MED ---
Discharge Summary Date of Service May 21, 2016 Dates of Hospitalization Date of Hospital Admission May 19, 2016 at 21:43 Date of Discharge: May 21, 2016 Providers: Admitting Physician: Carlton Yoder MD Primary Care Physician: Rosalind Yeager MD Attending Physician: Carlton Yoder MD Diagnosis at Time of Discharge Diagnosis at Time of Discharge 1. Acute unstable angina 2. Acute kidney injury 3. Acute leukocytosis 4. Uncontrolled diabetes mellitus type II 5. Hyperlipidemia Consultations Cardiology Procedures XRay, CTs & MRIs X-RAY CHEST ONE VIEW, PORTABLE 05/19 IMPRESSION: No acute process. Dictated by: Nellie Hood M.D. on 05/19/2016 at 20:25 Approved by: Nellie Hood M.D. on 05/19/2016 at 20:26 ECG 12 Lead Sinus rhythm rate 81 Borderline prolonged [place] interval Right bundle branch block Nonspecific ST wave changes Interpreted by: ED physician Cardiac Echo Impression Echocardiogram Report Interpretation Summary Left ventricular wall thickness is mildly increased. Left ventricular ejection fraction is estimated to be .55. There is apical inferior wall severe hypokinesis. Compared to the prior exam, the left ventricular wall motion has not changed. There is mild aortic valve sclerosis. The right ventricular systolic pressure is estimated at 33 mmHg assuming a right atrial pressure of 8 mm Hg. Other Diagnostics PROCEDURE: 1 DAY PHARMACOLOGICAL STRESS TEST Rest and pharmacological stress myocardial perfusion SPECT with gated imaging and ejection fraction RADIOPHARMACEUTICAL: 10.1 mCi Tc-99m tetrafosmin IV at rest and 34 mCi Tc-99m tetrafosmin IV at peak effect of pharmacological stress. A bad-yly-tedmfetq was performed. INDICATIONS: CORONARY ARTERY DISEASE; CHEST PAIN. TECHNIQUE: Radiopharmaceutical was injected at peak stress test, and also at rest. SPECT images were obtained. SPECT myocardial perfusion images were displayed in short axis, horizontal long axis, and vertical long axis views. Gated images were reviewed using Auto[employer] software. COMPARISON: None. CARDIAC STRESS: A pharmacologic stress test was performed under the supervision of an attending staff, using an infusion of lexiscan . Hemodynamic data: There is normal blood pressure and heart rate response to pharmacologic stress. Symptoms: The patient reported chest pain and dyspnea Aminophylline: 100 mg EKG: ST changes seen in the inferolateral leads - PVCs FINDINGS: Raw data: There is good myocardial uptake of radiotracer. No significant motion artifacts. Left ventricle function: Gated images demonstrate normal left ventricular wall thickening. There is hypokinesis of the septum consistent with a post surgical state. Left ventricle resting end diastolic volume is 104 mL. Left ventricle stress ejection fraction is 59% ; normal range is above 45%. Myocardial perfusion: There is a small area of moderately decreased uptake affecting the apex that is fixed on the rest and stress images. There is also a very small area of mildly decreased uptake affecting the basal inferolateral wall. IMPRESSION: 1. Appropriate hemodynamic response to pharmacologic stress. 2. The patient reported chest pain and dyspnea. ECG changes are present. 3. Scintigraphic area for a small area of possible ischemia affecting the basal inferolateral wall. The apical defect may be related to previous myocardial injury. 4. Normal left ventricular size and systolic function. Dictated by: Sandra Hernandez M.D. on 05/21/2016 at 12:14 Brief History History of present illness on admission by Dr. Yoder: Mr. Rivera is a 66-year-old male with significant history of CAD with CABG ( 1996 x4 at [place]), known saphenous vein graft occlusion, stent to mid and distal RCA and diagonal branch in 2000, hypertension, diabetes, hyperlipidemia. His most recent heart catheterization 02/11/2014 revealed normal left main, LAD chronically clued distal takeoff of the first diagonal branch. Previous stent remained patent. Circumflex artery was small. First obtuse marginal branch was occluded. Second obtuse marginal branch was small and had a tight 90 % stenosis. The dominant RCA had 60% stenosis in the proximal portion, eccentric 95% stenosis in the midportion and an 80% stenosis in the distal portion. The right posterior descending branch had minor irregularity. The right posterolateral branch had eccentric 95% stenosis. The left internal mammary artery graft to the LAD was in good shape with excellent distal anastomosis and distal runoff. PTCA to the proximal, mid and distal right RCA was performed. There was residual 40% stenosis in the proximal portion, 60% stenosis in the midportion, and 50-60% stenosis in the distal portion. PTCA to the small obtuse marginal branch was performed leaving residual 80% stenosis. LVEF of 70% with LVEDP 5 mmHg. Echocardiogram from 2014 showed normal systolic function with distal and anterior/ apical hypokinesis. No significant valvular disease. In February 2014 he had repeat CABG 1 with heart rate to PDA. The patient was last seen in our office in December 2015 at which point he was reporting continued but stable chest pain post prandially and with emotional stress and low-level activity. He claims overall he has been relatively stable symptom-[place] since then however on the evening of April 2015 experience some chest pressure while at his son's home that went away after a few minutes of rest. He went home and was sitting on his couch when he developed progressively worsening pain over several minutes that peaked at 4 out of 10. It was his typical pain/pressure substernally without radiation. He took 2 nitroglycerin tablets without improvement and called 911. He claims he is having a lot of stress as he was just told his son is getting a divorce. He claims since his admission he has had mild symptoms of chest pressure. He claims he has been compliant with his medications. He claims he has developed a tendinitis in his right foot for which he just started taking prednisone a day or 2 prior. He claims these symptoms have improved. He states otherwise he has been in good health without other concerns. He denies palpitations, orthopnea, PND. He admits to mild ongoing peripheral edema if he standing for too long (since his bypass surgery) but denies unusual shortness of breath or worsening exercise intolerance. He feels like he is under stress with the news of the divorce and this is aggravating his anginal symptoms. He occasionally gets tingling into his extremities but attributes this to working more on projects around the house. He symptoms improved with rest. He otherwise denies abdominal pain, problems with bowel movements, melena hematochezia, urinary dysfunction, unusual bruising, rash or lesions. Hospital Course Tez Rivera is a 66 year old male with Coronary artery disease, Diabetic with Hypertension and Hyperlipidemia who presents to [facility] emergency department with chest pain. 1. Acute Unstable Angina. Present on admission Extensive history of coronary artery disease with CABG with other risk factoring not limited to Diabetes, Hypertension and Hyperlipidemia. Presumed to have stable cardiac disease from Dec 2015 Cardiology clinic visit. - On Heparin drip - loading Plavix 300 mg then 75 mg daily in addition to Aspirin - trending cardiac biomarkers, mild trend upward of troponin to 0.017, CK-MB normal. - Cardiology has been consulted, stress test no significant ischemia - Patient will need 90mg daily of isosorbide daily with close outpatient cardiology follow up. Orthostatic hypotension precautions discussed -discussed case with Dr Esparza at bedside 2. Acute Kidney Injury. Present on admission, resolved No documented Kidney disease with normal renal function as of December 2015. Suspect pre renal azotemia as underlying cause. - avoid nephrotoxic insults, may pose an issue with cardiac cath is pursued - will continue hydration with normal saline - monitor urine output - KRYSTAL inhibitor initially held, resumed prior to discharge 3. Acute Leukocytosis. Present on admission, resolved Likely due to Steroids without any evidence of infections. Taking due to Achilles tendonitis but resolving - continue Prednisone till complete 4. Uncontrolled Diabetes type 2 - holding Metformin, restarted upon discharge - checking A1c to monitor compliance - patient on a regimen of Lantus 35 units bid patient will up titrate dose by 2 units per day while monitoring blood sugars and follow up with primary care - high correction Lispro algorithm 5. Hyperlipidemia Multiple side effects from other statins but currently tolerating Pravastatin. Total cholesterol > 200 from February - continuing Pravastatin Exam Vital Signs (Last) Date Time Temp Pulse Resp B/P Pulse Ox O2 Delivery O2 Flow Rate FiO2 05/21/16 15:08 36.9 58 18 174/85 97 Room Air 05/19/16 21:19 3 Exam General: No acute distress, well-developed, well-nourished, appropriately interactive HEENT: Normocephalic, atraumatic. External ears without defect. Pupils equal, round, and reactive to light and accommodation. Anicteric sclerae, moist conjunctivae, and no lid lag. Oropharynx free of erythema and cobble stoning with moist mucosa. Neck: Supple with full range of motion. No jugular venous distension. No lymphadenopathy or thyromegaly. Cardiovascular: Regular rate and rhythm with no murmurs, rubs, or gallops appreciated Pulmonary: Clear to auscultation bilaterally with no crackles, wheezes, or rhonchi. Normal respiratory effort with no use of accessory muscles. Abdomen: Bowel tones present. Soft, nontender, nondistended. No hepatosplenomegaly or masses appreciated. Extremities: No clubbing, cyanosis, edema, or lymphadenopathy appreciated. Skin: Normal temperature, turgor, and texture; no rash, ulcers, or subcutaneous nodules appreciated. Neurological: Cranial nerves grossly intact. Normal muscle strength, tone, and bulk. No known gait impairment. Psychiatric: Normal mood and affect. Alert and oriented to person, place, and time. Speaking in full sentences Test 05/19/16 20:16 05/19/16 23:06 05/20/16 02:26 05/20/16 06:15 Hemoglobin A1c 6.7% (4.8-5.6) Magnesium Level 1.8mg/dL (1.6-2.6) Thyroid Stimulating Hormone (TSH) 1.020uIU/mL (0.450-4.500) Hold Urine Received (Received) Total Creatine Kinase 274U/L (21-232) Creatine Kinase MB 4.6ng/mL (0.0-10.4) Creatine Kinase MB % % (0.0-5.0) Triglycerides Level 244mg/dL (0-149) Cholesterol Level 194mg/dL (100-199) LDL Cholesterol, Calculated 109.200mg/dL (0-99) VLDL Cholesterol 48.800mg/dL HDL Cholesterol 36mg/dL (>39) Cholesterol/HDL Ratio 5.39 (0.0-4.4) Test 05/21/16 03:11 05/21/16 11:40 White Blood Count 8.7th/mm3 (3.8-10.1) Red Blood Count 4.15mil/mm3 (4.40-5.80) Hemoglobin 13.3g/dL (13.8-17.2) Hematocrit 38.1% (41.0-50.0) Mean Corpuscular Volume 91.8fL (81-100) Mean Corpuscular Hemoglobin 32.0pg (27.0-35.0) Mean Corpuscular Hemoglobin Concent 34.9% (32.0-37.0) Red Cell Distribution Width 12.2% (12.3-15.4) Platelet Count 168bil/L (150-400) Neutrophils (%) (Auto) 85.1% (40-74) Lymphocytes (%) (Auto) 12.4% (14-46) Monocytes (%) (Auto) 2.0% (4-12) Eosinophils (%) (Auto) 0% (0-5) Basophils (%) (Auto) 0% (0-3) Sodium Level 140mEq/L (134-144) Potassium Level 4.5mEq/L (3.5-5.2) Chloride Level 103mEq/L (97-108) Carbon Dioxide Level 22mmol/L (18-29) Blood Urea Nitrogen 24mg/dL (8-27) Creatinine 0.95mg/dL (0.76-1.27) Estimat Glomerular Filtration Rate 85mL/min (>59) Glucose Level 265mg/dL (60-99) Calcium Level 8.8mg/dL (8.5-10.1) Total Bilirubin 0.4mg/dL (0.0-1.2) Aspartate Amino Transf (AST/SGOT) 19U/L (0-50) Alanine Aminotransferase (ALT/SGPT) 15U/L (0-44) Alkaline Phosphatase 54U/L (25-160) Troponin T 0.010ug/L (0.0-0.011) Total Protein 6.4g/dL (6.4-8.4) Albumin 3.6g/dL (3.4-5.0) Activated Partial Thromboplast Time 22.7sec (22.8-33.0) Microbiology Results Stool occult blood positive Discharge Medications Discharge Medications Amlodipine (Norvasc) 10 Mg Tablet 10 MG PO DAILY (Reported) Aspirin (Aspir 81) 81 Mg Tablet.dr 81 MG PO HS (Reported) Benazepril (Lotensin) 20 Mg Tablet 20 MG PO DAILY (Reported) Clonidine HCl (Clonidine 0.2 mg/24 hr Tdrm Patch) 1 Each Patch.tdwk 1 PATCH TD QW (Reported) Insulin Detemir (Levemir Flextouch) 100 Unit/1 Ml Insuln.pen 35 UNIT SQ BID ( Reported) Isosorbide MN ER (Isosorbide MN ER) 30 Mg Tab.er.24h 90 MG PO DAILY Prescribed by: SATISH MCCORD DO Metformin (Metformin) 500 Mg Tablet 500 MG PO BID (Reported) Metoprolol Succinate ER (Metoprolol Succinate ER) 100 Mg Tab.er.24h 100 MG PO BID (Reported) As needed ([Hydrocodone/Acetaminophen]) 1 TAB TABLET 1-2 TAB PO Q4H PRN PRN For Pain Prescribed by: JIMI VIGIL MD Nitroglycerin SL (Nitrostat) 0.4 Mg Tab.subl 0.4 MG SL Q5MIN PRN PRN For Chest Pain 0.4 mg under the tongue every 5 minutes X3 as needed for chest pain Prescribed by: SATISH MCCORD, DO Additional med instructions Per cardiology we are increasing your dose of Imdur to 90 mg daily. Increase your insulin dosing as described below. Continue Plavix daily, prescription was called in to [facility] Followup Plan Disposition: Patient discharged home with no needs Follow-up plan Close follow-up with cardiology for coronary artery disease Close follow-up with primary care for diabetes. Discharge Diet: Heart Healthy Discharge Activity: No restrictions Patient Instructions Your blood sugars have been high here in the hospital. Once home we will need to up titrate your insulin. You may go up to 2 units per day until your blood sugars are in better control. You will need to check an evening and fasting morning blood sugar at a minimum. Close follow up with your primary care provider. Follow-up Provider: Rosalind Yeager MD Follow-up with PCP in: 1 week Provider: Fahad Leon MD Follow-up in: 1 week Time spent 35 minutes coordinating discharge and counselling patient Attending Statement The patient was seen and examined together with Dr. mccord on 05/21/2016 and I agree with the discharge summary outlined in the note above. copies to: Rosalind Yeager MD; Fahad Leon MD, Erika R DO May 21, 2016 19:36 Chilango Ge MD May 21, 2016 19:47
[2016-05-21] MEDS ORDERED: Insulin GLARgine 100 Unit/mL Syringe SUBQ SCH (20:30)
== END 2016-05-21 16:45 | disposition home or self-care (01) | DRG 303 ==
LOC: EDUNIT# 19:49 → SED 19:49 → EDBD 19:49 → MPC 21:43
PROVIDERS: ADMIT Hospitalist; ATTEND Hospitalist
DX: I25.110 Atherosclerotic heart disease of native coronary artery with unstable angina pectoris (principal); N17.9 Acute kidney failure, unspecified; E11.65 Type 2 diabetes mellitus with hyperglycemia; E78.5 Hyperlipidemia, unspecified; Z95.1 Presence of aortocoronary bypass graft